=== PATIENT | female | born 1955 | race Caucasian/White ===

== ENCOUNTER 2023-08-08 03:42 | Emergency (ER) | payer MEDICARE, MEDICAID, SELFPAY ==
--- NOTE | 2023-08-08 03:44 | ED.GENMED ---
History of Present Illness
General
Chief Complaint: Crisis Evaluation
Source: patient and police
Exam Limitations: none
Time Seen by Provider: 08/08/23 03:46
Nursing documentation reviewed up to this point in time: agreed with
History of Present Illness
History of Present Illness:
67-year-old female brought in by police after attempting to 'burn her apartment down to kill her landlord'. Patient has a history of paranoid schizophrenia.
Past History
Past History
ED Past Medical History: Psychiatric (anxiety) and Other (schizoaffective disorder)
Review of Systems
Review of Systems
All Other Systems: Not applicable
Psychiatric: Reports anxiety, hallucinations and other (homicidal)
Phy Exam
General Physical Exam
General Presentation: moderate distress
General age: appears older than age
General Habitus: debilitated and frail
General Mental: anxious and confused
General Hydration: appears well hydrated
Cardiovascular Exam
Cardiovascular Exam: regular rate/rhythm and no edema
Pulmonary Exam
Pulmonary Exam: lungs clear and no respiratory distress
Course
Orders/Labs/Results
Orders:
Orders
08/08/23 10:36
Complete Blood Count/With Diff Urgent
08/08/23 10:37
Acetaminophen Urgent
Alcohol Urgent
Comprehensive Metabolic Panel Urgent
Salicylate Urgent
Abnormal Lab Results
08/08/23
10:37
BUN 21 H mg/dl
(7-17)
Salicylates < 1.0 L mg/dl
(2.0-20.0)
Acetaminophen < 10 L ug/ml
(10-30)
08/08/23 10:36
08/08/23 10:37
Vital Signs
Initial and Last Documented VS:
Initial Vital Signs
Pulse Resp BP Pulse Ox
81 25 131/86 98
08/08/23 03:55 05/29/24 03:55 08/08/23 03:55 08/08/23 03:55
Last Documented Vital Signs
Pulse Resp BP Pulse Ox
92 25 142/75 97
08/08/23 17:42 08/08/23 03:55 08/08/23 17:42 08/08/23 17:42
*Critical Care Note
Total Time (30-74mins, 75-104mins- exclusive of procedures): Not Applicable
ED Attending Note
-
Portions of this chart may have been created with voice recognition software.� Occasional wrong word or��sound alike� substitutions may have occurred due to the inherent limitations of voice recognition software.
Discharge Plan
Departure
Patient Disposition: Psych Facility
Date of Disposition: 08/08/23
Time of Disposition: 05:13
Condition: Good
Discharge Problem:
Pyromania, Homicidal ideation, Schizophrenia
Prescriptions:
No Action
simvastatin 40 MG tablet
40 mg PO QPM
aspirin 81 MG tablet,chewable
81 mg PO PRN PRN (Reason: pain)
lorazepam 1 MG tablet
1 mg PO Q4HPRN PRN (Reason: anxiety)
docosahexaenoic acid-epa 1 CAP capsule
1 cap PO DAILY
Lecithin
Vitamin C
Unobtainable
Referrals:
UNKNOWN - PT DOES,NOT KNOW [Family Provider] -
Interventions
Interventions:
*Risk Screen - Suicide Last Done: 08/08/23 03:57
*General Assessment Last Done: 08/08/23 03:52
*Neglect/Abuse Screening Last Done: 08/08/23 03:57
ED- Fall Risk Assessment Last Done: 08/08/23 08:40
*ED COVID-19 Vaccine History Last Done: 08/08/23 03:52
*Nursing Disposition Last Done: 08/08/23 19:48
ED-Psychological Assessment Last Done: 08/08/23 03:54
Discharge Date and Time
Discharge Date/Time: 08/08/23 19:52
Print Language: PALAUAN
[2023-08-08 03:55] VITALS: BP 131/86
[2023-08-08 10:47] LABS: % Basophils 0.7 % (0-2); % Eosinophils 0.5 % (0-6); % Immature Granulocytes 0.2 % (0-0.5); % Lymphocytes 24.9 % (20.5-51.1); % Monocytes 8.3 % (1.7-9.3); % Neutrophils 65.4 % (42.2-75.2); Absolute Lymphocytes 1.5 10^3/uL (1.2-3.4); Absolute Monocytes 0.5 10^3/uL (0.1-0.6); Hematocrit 37.2 % (37.0-47.0); Hemoglobin 12.9 g/dL (12.0-16.0); Mean Corp Hgb Conc. 34.7 g/dL (33.0-37.0); Mean Corpuscular Hgb 28.5 pg (27.0-31.0); Mean Corpuscular Volume 82.3 fL (81.0-99.0); Mean Platelet Volume 8.8 fL (7.4-10.4); Nucleated Red Blood Cells % 0 %; Platelet Count 293 10^3/uL (130-400); Red Blood Cell Count 4.52 10^6/uL (4.20-5.40); Red Cell Dist. Width 13.3 % (11.5-14.5); White Blood Cell Count 6.1 10^3/uL (4.8-10.8)
[2023-08-08 11:09] LABS: ALT (SGPT) 20 U/L (0-35); AST (SGOT) 27 U/L (14-36); Acetaminophen < 10 ug/ml (10-30); Albumin 4.9 g/dl (3.5-5.0); Alcohol None Detected; Alkaline Phosphatase 70 U/L (38-126); Blood Urea Nitrogen 21 mg/dl (7-17); Calcium 9.9 mg/dl (8.4-10.2); Carbon Dioxide 26 mmol/L (22-30); Chloride 105 mmol/L (98-107); Glucose 93 mg/dl (70-99); Potassium 4.6 mmol/L (3.5-5.1); Salicylate < 1.0 mg/dl (2.0-20.0); Sodium 140 mmol/L (135-145); Total Bilirubin 0.5 mg/dl (0.2-1.3); Total Protein 7.7 g/dl (6.3-8.2); eGFR > 60.00
[2023-08-08 17:42] VITALS: BP 142/75
== END 2023-08-08 19:52 ==
LOC: EMR 03:42
PROVIDERS: Emergency Medicine; EMERGENCY PHYSICIAN Student in an Organized Health Care Education/Training Program
DX: F63.1 Pyromania (principal); R45.850 Homicidal ideations; F25.9 Schizoaffective disorder, unspecified
CPT/HCPCS: 99285; 80053; 80143; 80179; 82077; 85025